=== PATIENT | female | born 1990 | race Caucasian/White ===

== ENCOUNTER 2019-07-10 05:17 | Emergency (ER) | payer MEDICAID | END 2019-07-10 05:45 | disposition admitted as inpatient to this hospital (09) | LOC: ER 05:17 | DX: Z53.21 Procedure and treatment not carried out due to patient leaving prior to being seen by health care provider (principal) ==

== ENCOUNTER 2019-07-10 05:35 | Inpatient (IN) | payer MEDICAID ==
[2019-07-10] MEDS ORDERED: PENICILLIN G-K 5 MILLION UNIT VIAL ONE ×2 (05:37→06:57)
[2019-07-10] MEDS ORDERED: OXYTOCIN 10 UNIT/ML VIAL ONE (05:39)
[2019-07-10] MEDS ORDERED: MISOPROSTOL 0.2 MG TABLET ONE (05:39)
[2019-07-10] MEDS ORDERED: OXYTOCIN/NORMAL SALINE 20 UNIT/1,000 ML RTUINJ ONE (05:40)
[2019-07-10] MEDS ORDERED: LIDOCAINE 1% INJ-PF (10 MG/ML) 30 ML SDV ONE (05:40)
[2019-07-10] MEDS ORDERED: BETAMET ACET/BETAMET NA INJ 6 MG/1 ML ONE (05:40)
[2019-07-10] MEDS ORDERED: PENICILLIN G POTASSIUM 5,000,000 UNIT in DEXTROSE 5%-WATER 100 ML IV ONE (05:49)
[2019-07-10] MEDS ORDERED: RINGERS SOLUTION,LACTATED 1,000 ML IV PRN (05:49)
[2019-07-10] MEDS ORDERED: BETAMET ACET/BETAMET NA INJ 6 MG/1 ML IM ONE (06:02)
[2019-07-10] MEDS ORDERED: MAGNESIUM SULFATE 4 GM/100 ML RTUPB IV ONE (06:03)
[2019-07-10 06:21] LABS: ABSOLUTE EOSINOPHILS # (AUTO) 0.1 10^3/uL (0.0-0.6); ABSOLUTE LYMPHOCYTES (AUTO) 2.1 10^3/uL (0.5-4.7); ABSOLUTE MONOCYTES (AUTO) 0.6 10^3/uL (0.1-1.4); ABSOLUTE NEUT (AUTO) 4.8 10^3/uL (1.7-8.2); BASOPHILS % (AUTO) 0.4 % (0-2); EOSINOPHILS % (AUTO) 0.7 % (0-6); HEMATOCRIT 40.3 % (36.0-47.0); LYMPHOCYTES % (AUTO) 27.4 % (13-45); MEAN CORPUSCULAR HEMOGLOBIN 32.2 pg (27.0-33.4); MEAN CORPUSCULAR HGB CONC 34.7 g/dL (32.0-36.0); MEAN CORPUSCULAR VOLUME 93 fl (80-97); PLATELET COUNT 180 10^3/uL (150-450); RED BLOOD COUNT 4.35 10^6/uL (3.72-5.28); RED CELL DISTRIBUTION WIDTH 13.8 % (11.5-14.0); SEGMENTED NEUTROPHILS % (AUTO) 63.5 % (42-78); TOTAL CELLS COUNTED % (AUTO) 100 %; WHITE BLOOD COUNT 7.6 10^3/uL (4.0-10.5)
--- NOTE | 2019-07-10 07:38 | RADIOLOGY REPORT (SQ) ---
Ultrasound limited on 07/10/2019 at 6:21 AM CLINICAL INDICATION: Patient presents in labor with no care COMPARISON: None FINDINGS: Limited sonographic imaging is performed throughout the pelvis by transabdominal approach, both transverse and sagittal images are obtained. Single living intrauterine fetus is noted in cephalic presentation. Placenta is posterior in location with no evidence of placenta previa or abruption. Positive cardiac activity is noted with a heart rate of 128 bpm. Largest vertical pocket of amniotic fluid measures 2.4 cm. No gross abnormality is noted on limited imaging. Estimated gestational age by measurements is an approximate 34 week three day gestation. Estimated weight is 5 lbs. 12 oz. +/- 14 ounces. IMPRESSION: Single living approximate 34 week three day intrauterine .
[2019-07-10] MEDS ORDERED: BENZOCAINE/MENTHOL AEROSOL SPRAY 56 ML TOP PRN (07:59)
[2019-07-10] MEDS ORDERED: PROMETHAZINE HCL 25 MG SUPP.RECT PR PRN (07:59)
[2019-07-10] MEDS ORDERED: OXYTOCIN/NORMAL SALINE 20 UNIT/1,000 ML RTUINJ IV PRN ×2 (07:59→10:04)
[2019-07-10] MEDS ORDERED: PSEUDOEPHEDRINE HCL 30 MG TABLET PO PRN (07:59)
[2019-07-10] MEDS ORDERED: ACETAMINOPHEN WITH CODEINE #3 TABLET PO PRN ×2 (07:59)
[2019-07-10] MEDS ORDERED: DIBUCAINE 1% OINTMENT 56 GM TP PRN (07:59)
[2019-07-10] MEDS ORDERED: MAGNESIUM HYDROXIDE SUSP 30 ML UDCUP PO PRN (07:59)
[2019-07-10] MEDS ORDERED: MEASLES,MUMPS&RUBELLA VACC/PF 0.5 ML VIAL SUBCUT PRN (07:59)
[2019-07-10] MEDS ORDERED: ZOLPIDEM TARTRATE 5 MG TABLET PO PRN (07:59)
[2019-07-10] MEDS ORDERED: PROMETHAZINE HCL 25 MG TABLET PO PRN (07:59)
[2019-07-10] MEDS ORDERED: DIPHENHYDRAMINE HCL 25 MG CAPSULE PO PRN (07:59)
[2019-07-10] MEDS ORDERED: DIPH/PERTUSS(ACELL)/TETANUS VAC/PF 0.5 ML SYR (>=10YO) IM PRN (07:59)
[2019-07-10] MEDS ORDERED: ACETAMINOPHEN 650 MG SUPP.RECT PR PRN (07:59)
[2019-07-10] MEDS ORDERED: GLYCERIN/WITCH HAZEL LEAF 1 EACH MED..WIPE TP PRN (07:59)
[2019-07-10] MEDS ORDERED: PROMETHAZINE HCL INJ 25 MG/1 ML VIAL IV PRN (07:59)
[2019-07-10] MEDS ORDERED: NA PHOS,M-B/NA PHOS,DI-BA (ADULT) 133 ML ENEMA PR PRN (07:59)
[2019-07-10] MEDS ORDERED: PENICILLIN G POTASSIUM 2,500,000 UNIT in DEXTROSE 5%-WATER 50 ML IV SCH (09:49)
[2019-07-10] MEDS: IBUPROFEN 800 MG TABLET PO SCH ×3 (13:42→21:22)
[2019-07-10] MEDS: FERROUS SULFATE 325 MG TABLET PO SCH ×2 (13:43→18:08)
[2019-07-10] MEDS: DOCUSATE SODIUM 100 MG CAPSULE PO SCH ×2 (13:43→18:08)
[2019-07-10] MEDS: PRENATAL VITAMIN W DHA CAPSULE PO SCH (13:43)
[2019-07-10] MEDS: SENNOSIDES/DOCUSATE 8.6-50 MG 1 EACH TABLET PO SCH (13:43)
[2019-07-10] MEDS: FAMOTIDINE 20 MG TABLET PO SCH ×2 (13:43→21:23)
[2019-07-10 16:24] LABS: APPEARANCE,URINE CLEAR; BILIRUBIN,URINE NEGATIVE (NEGATIVE); COLOR,URINE YELLOW; GLUCOSE, URINE 50 mg/dL (NEGATIVE); KETONES,URINE NEGATIVE (NEGATIVE); LEUKOCYTE ESTERASE,URINE NEGATIVE (NEGATIVE); NITRITE,URINE NEGATIVE (NEGATIVE); PROTEIN,URINE NEGATIVE (NEGATIVE); URINE SPECIFIC GRAVITY 1.008; UROBILINOGEN,URINE NEGATIVE mg/dL (<2.0)
[2019-07-10 16:47] LABS: URINE AMPHETAMINES SCREEN NEGATIVE; URINE BARBITURATES SCREEN NEGATIVE; URINE BENZODIAZEPINES SCREEN NEGATIVE; URINE COCAINE SCREEN NEGATIVE; URINE MARIJUANA (THC) SCREEN NEGATIVE; URINE METHADONE SCREEN NEGATIVE; URINE PHENCYCLIDINE SCREEN NEGATIVE
[2019-07-10 17:49] LABS: CHLAM PCR NOT DETECTED (NOT DETECT)
[2019-07-11] MEDS: IBUPROFEN 800 MG TABLET PO SCH ×3 (05:17→22:11)
[2019-07-11 07:01] LABS: HEMATOCRIT 40.5 % (36.0-47.0); HEMOGLOBIN 13.8 g/dL (12.0-15.5); MEAN CORPUSCULAR HEMOGLOBIN 32.1 pg (27.0-33.4); MEAN CORPUSCULAR HGB CONC 34.1 g/dL (32.0-36.0); MEAN CORPUSCULAR VOLUME 94 fl (80-97); PLATELET COUNT 186 10^3/uL (150-450); RED CELL DISTRIBUTION WIDTH 13.8 % (11.5-14.0)
[2019-07-11 07:04] LABS: WHITE BLOOD COUNT 19.4 10^3/uL (4.0-10.5)
[2019-07-11 07:38] LABS: HEPATITIS C VIRUS AB <0.1 s/co ratio (0.0-0.9)
[2019-07-11 09:33] LABS: HEPATITS B SURFACE ANTIGEN Negative (Negative)
[2019-07-11] MEDS: DOCUSATE SODIUM 100 MG CAPSULE PO SCH ×2 (10:08→18:22)
[2019-07-11] MEDS: FERROUS SULFATE 325 MG TABLET PO SCH ×2 (10:08→18:22)
[2019-07-11] MEDS: FAMOTIDINE 20 MG TABLET PO SCH ×2 (10:09→22:12)
[2019-07-11] MEDS: PRENATAL VITAMIN W DHA CAPSULE PO SCH (10:09)
[2019-07-11] MEDS: SENNOSIDES/DOCUSATE 8.6-50 MG 1 EACH TABLET PO SCH (10:09)
--- NOTE | 2019-07-11 10:52 | PDOC PROGRESS REPORT ---
Subjective-OB Progress Note for:: 07/11/19 Subjective: Pt doing well, no concerns. She reports light bleeding, reg diet and voiding without difficulty. Physical Exam (OB) Vital Signs: Temp Pulse Resp BP Pulse Ox 97.9 F 51 L 16 106/68 99 07/11/19 07:34 07/11/19 07:34 07/11/19 07:34 07/11/19 07:34 07/11/19 07:34 Intake & Output 07/10/19 07/11/19 07/12/19 06:59 06:59 06:59 Intake Total 360 Balance 360 Weight 54 kg - PIH/Pre-Eclampsia DTR's: 1 + Clonus: Negative Headache: Absent Epigastric Pain: No Visual Changes: No - Lochia Lochia Amount: Scant < 10 ml Lochia Color: Rubra/Red - Abdomen Description: Soft, Round Hernia Present: No Fundal Description: Firm, Midline Fundal Height: u/u - u/2 Objective-Diagnostic Laboratory: 07/11/19 06:41 07/10/19 07/11/19 07/11/19 15:36 06:41 06:41 WBC 19.4 H D RBC 4.30 Hgb 13.8 Hct 40.5 MCV 94 MCH 32.1 MCHC 34.1 RDW 13.8 Plt Count 186 Urine Color YELLOW Urine Appearance CLEAR Urine pH 8.0 Ur Specific [place] 1.008 Urine Protein NEGATIVE Urine Glucose (UA) 50 H Urine Ketones NEGATIVE Urine Blood LARGE H Urine Nitrite NEGATIVE Ur Leukocyte Esterase NEGATIVE Urine WBC (Auto) 5 Urine RBC (Auto) >182 Blood Type O NEGATIVE Assessment and Plan(PN) - Assessment and Plan (1) Vaginal delivery Is this a current diagnosis for this admission?: Yes (2) No care in current Is this a current diagnosis for this admission?: Yes (3) Normal course Is this a current diagnosis for this admission?: Yes - Time Spent with Patient Time with patient: Less than 15 minutes Medications reviewed and adjusted accordingly: Yes - Disposition Anticipated Discharge: Home Within: within 24 hours
[2019-07-12] MEDS: IBUPROFEN 800 MG TABLET PO SCH ×2 (06:00→15:53)
[2019-07-12 08:01] VITALS: BP 95/64
[2019-07-12] MEDS: FERROUS SULFATE 325 MG TABLET PO SCH (09:36)
[2019-07-12] MEDS: DOCUSATE SODIUM 100 MG CAPSULE PO SCH (09:37)
[2019-07-12] MEDS: FAMOTIDINE 20 MG TABLET PO SCH (09:40)
[2019-07-12] MEDS: SENNOSIDES/DOCUSATE 8.6-50 MG 1 EACH TABLET PO SCH (09:41)
[2019-07-12] MEDS: PRENATAL VITAMIN W DHA CAPSULE PO SCH (09:41)
[2019-07-12 11:17] LABS: HEMATOCRIT 38.7 % (36.0-47.0); HEMOGLOBIN 13.4 g/dL (12.0-15.5); MEAN CORPUSCULAR HEMOGLOBIN 32.4 pg (27.0-33.4); MEAN CORPUSCULAR HGB CONC 34.7 g/dL (32.0-36.0); MEAN CORPUSCULAR VOLUME 94 fl (80-97); PLATELET COUNT 176 10^3/uL (150-450); RED BLOOD COUNT 4.14 10^6/uL (3.72-5.28); WHITE BLOOD COUNT 11.8 10^3/uL (4.0-10.5)
--- NOTE | 2019-07-12 12:44 | PDOC DISCHARGE SUMMARY ---
Impression - Admit/DC Date/PCP Admission Date/Primary Care Provider: 07/10/19 05:54 CJ ROQUE MD Discharge Date: 07/12/19 - Additional Information Resuscitation Status: Full Code Discharge Diet: As Tolerated, Regular Discharge Activity: Activity As Tolerated, Balance Activity w/Rest, No Lifting Over 10 Pounds, Pelvic Rest, No tub bath, Walk Frequently Referrals: CJ ROQUE MD [Primary Care Provider] - Prescriptions: Ibuprofen [Ibu] 800 mg PO Q8HP PRN #20 tablet PRN Reason: Abdominal Cramping Home Medications: Vits96/Iron Fum/Folic [ Tablet] 1 each PO DAILY 07/10/19 Ibuprofen [Ibu] 800 mg PO Q8HP PRN #20 tablet 07/12/19 Additional Information: FOLLOW UP AT [facility] IN 2 WEEKS Results Laboratory Results: WBC 11.8 10^3/uL (4.0-10.5) H 07/12/19 11:00 RBC 4.14 10^6/uL (3.72-5.28) 07/12/19 11:00 Hgb 13.4 g/dL (12.0-15.5) 07/12/19 11:00 Hct 38.7 % (36.0-47.0) 07/12/19 11:00 MCV 94 fl (80-97) 07/12/19 11:00 MCH 32.4 pg (27.0-33.4) 07/12/19 11:00 MCHC 34.7 g/dL (32.0-36.0) 07/12/19 11:00 RDW 14.0 % (11.5-14.0) 07/12/19 11:00 Plt Count 176 10^3/uL (150-450) 07/12/19 11:00 Lymph % (Auto) 27.4 % (13-45) 07/10/19 05:58 [place] % (Auto) 8.0 % (3-13) 07/10/19 05:58 Eos % (Auto) 0.7 % (0-6) 07/10/19 05:58 Baso % (Auto) 0.4 % (0-2) 07/10/19 05:58 Absolute Neuts (auto) 4.8 10^3/uL (1.7-8.2) 07/10/19 05:58 Absolute Lymphs (auto) 2.1 10^3/uL (0.5-4.7) 07/10/19 05:58 Absolute Monos (auto) 0.6 10^3/uL (0.1-1.4) 07/10/19 05:58 Absolute Eos (auto) 0.1 10^3/uL (0.0-0.6) 07/10/19 05:58 Absolute Basos (auto) 0.0 10^3/uL (0.0-0.2) 07/10/19 05:58 Seg Neutrophils % 63.5 % (42-78) 07/10/19 05:58 Urine Color YELLOW 07/10/19 15:36 Urine Appearance CLEAR 07/10/19 15:36 Urine pH 8.0 (5.0-9.0) 07/10/19 15:36 Ur Specific [place] 1.008 07/10/19 15:36 Urine Protein NEGATIVE mg/dL (NEGATIVE) 07/10/19 15:36 Urine Glucose (UA) 50 mg/dL (NEGATIVE) H 07/10/19 15:36 Urine Ketones NEGATIVE mg/dL (NEGATIVE) 07/10/19 15:36 Urine Blood LARGE (NEGATIVE) H 07/10/19 15:36 Urine Nitrite NEGATIVE (NEGATIVE) 07/10/19 15:36 Urine Bilirubin NEGATIVE (NEGATIVE) 07/10/19 15:36 Urine Urobilinogen NEGATIVE mg/dL (<2.0) 07/10/19 15:36 Ur Leukocyte Esterase NEGATIVE (NEGATIVE) 07/10/19 15:36 Urine WBC (Auto) 5 /HPF 07/10/19 15:36 Urine RBC (Auto) >182 /HPF 07/10/19 15:36 Urine Mucus (Auto) RARE /LPF 07/10/19 15:36 Urine Ascorbic Acid NEGATIVE (NEGATIVE) 07/10/19 15:36 Urine Opiates Screen NEGATIVE 07/10/19 15:36 Urine Methadone Screen NEGATIVE 07/10/19 15:36 Ur Barbiturates Screen NEGATIVE 07/10/19 15:36 Ur Phencyclidine Scrn NEGATIVE 07/10/19 15:36 Ur Amphetamines Screen NEGATIVE 07/10/19 15:36 U Benzodiazepines Scrn NEGATIVE 07/10/19 15:36 Urine Cocaine Screen NEGATIVE 07/10/19 15:36 U Marijuana (THC) Screen NEGATIVE 07/10/19 15:36 RPR NONREACTIVE (NONREACTIVE) 07/10/19 05:58 Chlamydia DNA (PCR) NOT DETECTED (NOT DETECT) 07/10/19 15:36 Hep Bs Antigen Negative (Negative) 07/10/19 05:58 Hepatitis C (BRITT) <0.1 s/co ratio (0.0-0.9) 07/10/19 05:58 Hep C Verif Com 1 Comment (.) 07/10/19 05:58 HIV 1&2 Antibody NEGATIVE (NEGATIVE) 07/10/19 05:58 N.gonorrhoeae DNA (PCR) NOT DETECTED (NOT DETECT) 07/10/19 15:36 Rubella IgG Antibody 8.71 IU/mL 07/10/19 05:58 Rubella IgG Ab Interp NEGATIVE 07/10/19 05:58 Blood Type O NEGATIVE 07/11/19 06:41 Antibody Screen NEGATIVE 07/10/19 05:58 Screen NEGATIVE 07/11/19 06:41 Impressions: Obstetrics Ultrasound 07/10/19 00:00 IMPRESSION: Single living approximate 34 week three day intrauterine .
--- NOTE | 2019-07-13 10:56 | Delivery Summary ---
Del Sum A-C Datetime Report Generated by CPN: 07/13/2019 10:56 DELIVERY PERSONNEL DELIVERY PERSONNEL: [id number] Delivery Doctor:: Berna Larson MD Labor and Delivery Nurse:: Ling Kam RNvisiting nurse Nurse:: Sharon Tobar RNC Nursery Nurse:: Amanda Cervantes RN Nursery Nurse:: Jacquie Moreira RN Tabulating Clerk/TE[employer]: Melly Sauer, UNLEAVENED DOUGH MIXER Additional Personnel: : Lauren Mike RN MATERNAL INFORMATION Delivery Anesthesia: None Medications After Delivery: Pitocin Drip 20 Units/1000ml NSS Maternal Complications: None Provider Comments: Called to patients room with her while on all fours. Head delivered, nuchal x1 noted and easily reduced. The shoulders and rest of the body then easily delivered. Cord doubly clamped and cut. handed off to RN awaiting. Placenta spontaneously delivered. Will send to pathology. FUndus firm. Second degree laceration noted but refused repair. Not bleeding currently to NICU. Mother stable LABOR SUMMARY EDC: 08/24/2019 00:00 No. Babies in Womb: 1 Attempted: No Labor Anesthesia: None LABOR INFORMATION Reason for Induction: Not Applicable Onset of Labor: 07/10/2019 03:00 Complete Dilatation: 07/10/2019 07:10 Oxytocin: N/A Group B Beta Strep: UNKNOWN Antibiotics # of Doses: 1 Antibiotics Time of Last Dose: 601 Name of Antibiotic Given: PCN Steroids Given: Partial Course Reason Steroids Not Administered: Not Applicable MEMBRANES Membranes Rupture Method: Spontaneous Rupture of Membranes: 07/10/2019 07:10 Length of Rupture (hr): 0.03 Amniotic Fluid Color: Clear Amniotic Fluid Amount: Moderate Amniotic Fluid Odor: Normal STAGES OF LABOR Stage 1 hr: 4 Stage 1 min: 10 Stage 2 hr: 0 Stage 2 min: 2 Stage 3 hr: 0 Stage 3 min: 5 Total Time in Labor hr: 4 Total Time in Labor min: 17 VAGINAL DELIVERY Episiotomy: None Laceration #1: Perineal Laceration Extension #1: Second Degree Laceration Repair: No Laceration Repair Note: Patient refused repair Sponge Count Correct: Yes Sharps Count Correct: Yes CSECTION DELIVERY Primary Indication: N/A Secondary Indication: N/A CSection Incidence: N/A Labor: N/A Elective: N/A CSection Incision: N/A BABY A INFORMATION Infant Delivery Date/Time: 07/10/2019 07:12 Method of Delivery: Vaginal Born in Route : No : N/A Forceps: N/A Vacuum Extraction: N/A Shoulder Dystocia : No PRESENTATION/POSITION BABY A Presentation: Cephalic Cephalic Presentation: Vertex Vertex Position: Right Occipital Posterior Breech Presentation: N/A PLACENTA INFORMATION BABY A Placenta Delivery Time : 07/10/2019 07:17 Placenta Method of Delivery: Spontaneous Placenta Status: Delivered SCORES BABY A Heart Rate 1 min: >100 bpm Resp Effort 1 min: Slow, Irregular Reflex Irritability 1 min: Cough or Sneeze or Pulls Away Muscle Tone 1 min: Active Motion Color 1 min: Blue/Pale Resuscitation Effort 1 min: Tactile Stimulation SCORE 1 MIN: 7 Heart Rate 5 min: >100 bpm Resp Effort 5 min: [place] Reflex Irritability 5 min: Cough or Sneeze or Pulls Away Muscle Tone 5 min: Active Motion Color 5 min: Body [place], Extremities Blue Resuscitation Effort 5 min: Tactile Stimulation SCORE 5 MIN: 9 INFANT INFORMATION BABY A Infant Outcome : Liveborn Infant Condition : Stable Sex: Female IDENTIFICATION BABY A Verification Date/Time: 07/10/2019 07:41 ID Band Number: [id number] Mother's Name Verified: Yes Infant RN Verifying : R. Jose Manueljo ann, RN Additional Verifying Personnel: F [employer], ST WEIGHT/LENGTH BABY A Infant Birthweight (gm): 2533 Weight (lb): 5 Infant Weight (oz): 9 Infant Length (in): 19.50 Infant Length (cm): 49.53 CORD INFORMATION BABY A No. Cord Vessels: 3 Nuchal Cord : Around Neck x1, Loose Cord Blood Taken: Yes-For Eval (Mom's Blood Type - or O+) ASSESSMENT BABY A Infant Complications- Other: Nursery @ bedside for delivery Physical Findings- Other: Terminal meconium Skin to Skin: No Infant Care By: M. Billy, RN Transferred To: NICU BABY B INFORMATION : N/A SIGNATURES Signature: with User ID: [email or web address] : with User ID: [email or web address]
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
== END 2019-07-12 14:45 | disposition home or self-care (01) | DRG 807 ==
LOC: LC 05:35 → LR 05:54 → 2S 11:40
PROVIDERS: ADMIT Obstetrics & Gynecology; ATTEND Obstetrics & Gynecology
PROC: 10E0XZZ Delivery of Products of Conception, External Approach (ICD-10-PCS; principal; 2019-07-10)
DX: O60.14X0 Preterm labor third trimester with preterm delivery third trimester, not applicable or unspecified (principal); Z37.0 Single live birth; O70.1 Second degree perineal laceration during delivery; O77.0 Labor and delivery complicated by meconium in amniotic fluid; O69.81X0 Labor and delivery complicated by cord around neck, without compression, not applicable or unspecified; K08.9 Disorder of teeth and supporting structures, unspecified; O99.62 Diseases of the digestive system complicating childbirth; R46.0 Very low level of personal hygiene; O99.89 Other specified diseases and conditions complicating pregnancy, childbirth and the puerperium; Z3A.33 33 weeks gestation of pregnancy
CPT/HCPCS: 36415; 76815; 80307; 81001; 85025; 85027; 85461; 86592; 86701; 86762; 86803; 86804; 86850; 86900; 86901; 87340; 87491; 87591; 88307; J0702; J2540; J2590; J2790; J3475; J3490; J7060